=== PATIENT | female | born 1940 | race Caucasian/White ===

== ENCOUNTER 2016-10-28 04:02 | Inpatient (IN) ==
[2016-10-22 14:43] LABS: HEMATOCRIT 36.2 % (37.0-47.0); HEMOGLOBIN 12.3 g/dL (12.0-16.0); MANUAL DIFF NEEDED? NO; RBC 4.13 XMIL (4.2-5.4)
[2016-10-22 14:44] LABS: BASO% 1.5 % (0.0-0.8); EOS% 9.8 % (0.0-10.0); IMM GRAN% 0.2 % (0.0-0.5); LYMPH# 3.16 X1000 (1.2-3.4); LYMPH% 29.2 % (20.5-51.1); MCH 29.8 PG (27-31); MCV 87.7 FL (81-99); MONO% 6.7 % (1.7-9.3); MPV 9.7 FL (7.4-10.4); NEUT% 52.6 % (42.2-75.2); PLT 299 X1000 (130-400)
[2016-10-22 14:45] LABS: EOS# 1.06 X1000 (0.0-0.7); IMM GRAN# 0.02 X1000 (0.0-0.04); MONO# 0.72 X1000 (0.11-0.59)
[2016-10-22 15:03] LABS: INR 1.03; PROTIME 10.8 Seconds (9.2-11.7)
[2016-10-22 16:50] LABS: CALCIUM 9.8 mg/dL (8.8-10.2); SODIUM 139 mmol/L (136-145)
[2016-10-22 21:33] LABS: URINE MICRO REVIEW NEEDED? NO; URINE SOURCE VOIDED
[2016-10-22 21:35] LABS: URINE WBC 20-40 /HPF (<10)
[2016-10-22 21:36] LABS: BILIRUBIN URINE NEGATIVE (NEGATIVE); COLOR YELLOW; GLUCOSE URINE NEGATIVE (NEGATIVE); SP GRAVITY URINE 1.011; TURBIDITY URINE CLEAR (CLEAR); UR EPITHELIAL CELLS <10 /HPF (<10); URINE BACTERIA 4+ /HPF; URINE RBC <10 /HPF (<10)
[2016-10-22 21:37] LABS: BLOOD URINE NEGATIVE (NEGATIVE); LEUKOCYTES URINE MODERATE (NEGATIVE); NITRITE URINE NEGATIVE (NEGATIVE); PROTEIN URINE NEGATIVE (NEGATIVE); UROBILINOGEN URINE NORMAL (NORMAL)
[2016-10-22 21:51] LABS: AGAP 21; BUN 21 mg/dL (8-22); CHLORIDE 94 mmol/L (98-107); COSMO 283; POTASSIUM 4.8 mmol/L (3.5-5.1); TCO2 24 mmol/L (25-35)
[2016-10-28] MEDS ORDERED: COLACE ONE (08:48)
[2016-10-28] MEDS ORDERED: PEPCID ONE (08:49)
[2016-10-28] MEDS ORDERED: REGLAN ONE (08:49)
[2016-10-28] MEDS ORDERED: VANCOMYCIN 1 GM/NS 1 GM/250 ML IVPB ONE (08:49)
[2016-10-28] MEDS ORDERED: CELEBREX ONE (08:49)
[2016-10-28] MEDS ORDERED: LR 1,000 ML ONE (08:49)
[2016-10-28] MEDS ORDERED: LYRICA ONE (08:49)
[2016-10-28] MEDS ORDERED: TORADOL ONE (10:17)
[2016-10-28] MEDS ORDERED: DURAMORPH ONE (10:17)
[2016-10-28] MEDS ORDERED: SODIUM CHLORIDE 0.9% ONE (10:18)
[2016-10-28] MEDS ORDERED: CYKLOKAPRON 1,000 MG/NS 1,000 MG/100 ML IVPB ONE (10:18)
[2016-10-28] MEDS ORDERED: MARCAINE 0.25% PF/EPI 1:200,000 ONE (10:18)
[2016-10-28] MEDS ORDERED: NEOSPORIN G.U. IRRIGANT ONE (10:19)
[2016-10-28] MEDS ORDERED: CLAVE SECONDARY SET 11953 ONE (10:20)
[2016-10-28] MEDS ORDERED: EXPAREL 1.3% ONE (10:20)
--- NOTE | 2016-10-28 11:15 | HISTORY AND PHYSICAL ---
CHIEF COMPLAINT: Right hip pain. HISTORY OF PRESENT ILLNESS: This is a 76-year-old white female with history of gradually increasing pain in her right hip. She knows of no specific injury to her hip. She has been on considerable conservative treatment without relief. She was evaluated in the office and found to need a right total hip arthroplasty. The surgical procedure, as well as risks and benefits were explained to patient and at this time she agrees to proceed. PAST MEDICAL HISTORY: Serious illnesses: Diabetes, asthma, and heart disease. PAST SURGICAL HISTORY: Pacemaker, gallbladder, color resection, and Whipple. REGULAR MEDICATIONS: Accolate 20 one a day, aspirin 81 one a day, 2 twice a day, Coreg 12.5 twice a day, doxepin 50 one a day, Feosol 325 one a day, Lasix 40 one a day, metformin 100 twice a day, Norvasc 5 one a day, omega-3 soft gel 1 a day, Pravachol 40 one a day, levothyroxine 150 one a day, citalopram 100 once a day. REVIEW OF SYSTEMS: HEENT: No history of migraines, dizziness, loss of conscious, CVA. Heart: She has a history of pacemaker. No recent heart problems. Respiratory: She has a history of asthma in the past. She states she has not had any asthma problems in a long time. She is a nonsmoker. Abdomen: Has history of pancreatic cancer and colon cancer. She has had a Whipple in the past. PHYSICAL EXAMINATION: GENERAL APPEARANCE: This is a 76-year-old female, alert and oriented. Her primary care physician is Dr. Draper. HEENT: Pupils are equal, round, reactive. NECK: Good range of motion without adenopathy. RESPIRATORY: Respirations are equal, unlabored, clear bilaterally. HEART: Regular rate and rhythm. ABDOMEN: Soft, nontender. Bowel sounds present. EXTREMITIES: She states she is unable walk without a walker. She states the pain is severe in her right hip. It radiates down her leg. IMPRESSION: Degenerative disease, right hip. PLAN: Admit at this time for right total hip arthroplasty. Dictated by Jose Elias Alexis RN for Vicente Alejo MD This chart was documented by the indicated scribe, Jose Elias Alexis RN and accurately reflects the services I performed and decisions made by me, Vicente Alejo MD, as attested by the provider's signature. cc: Vicente Alejo MD
[2016-10-28 12:00] LABS: URINE MICRO REVIEW NEEDED? NO; URINE SOURCE CATH
[2016-10-28 12:22] LABS: BILIRUBIN URINE NEGATIVE (NEGATIVE); BLOOD URINE NEGATIVE (NEGATIVE); COLOR YELLOW; GLUCOSE URINE NEGATIVE (NEGATIVE); LEUKOCYTES URINE NEGATIVE (NEGATIVE); NITRITE URINE NEGATIVE (NEGATIVE); PH URINE 7.5; PROTEIN URINE NEGATIVE (NEGATIVE); SP GRAVITY URINE 1.007; TURBIDITY URINE CLEAR (CLEAR); UROBILINOGEN URINE NORMAL (NORMAL)
[2016-10-28 12:23] LABS: UR EPITHELIAL CELLS <10 /HPF (<10); URINE BACTERIA NEGATIVE /HPF; URINE RBC <10 /HPF (<10); URINE WBC <10 /HPF (<10)
[2016-10-28] MEDS ORDERED: NS 1,000 ML ONE (13:35)
[2016-10-28] MEDS ORDERED: FENTANYL ONE (14:00)
[2016-10-28] MEDS ORDERED: DIPRIVAN 1% ONE (14:00)
[2016-10-28] MEDS ORDERED: NEO-SYNEPHRINE ONE (14:14)
[2016-10-28] MEDS ORDERED: ZOFRAN ONE (14:14)
[2016-10-28] MEDS ORDERED: STERILE WATER INJ. ONE (14:14)
[2016-10-28] MEDS ORDERED: NS 250 ML ONE (14:15)
[2016-10-28] MEDS ORDERED: PIGGYBACK SET 7393 ONE (14:15)
[2016-10-28] MEDS ORDERED: EPHEDRINE ONE (14:15)
[2016-10-28] MEDS ORDERED: LR 2,000 ML ONE (14:15)
[2016-10-28] MEDS ORDERED: OFIRMEV 1000 MG/ISOTONIC SOLN 1,000 MG/100 ML BOTTLE ONE (14:15)
[2016-10-28 14:16] LABS: HEMATOCRIT 29.6 % (37.0-47.0); HEMOGLOBIN 9.9 g/dL (12.0-16.0)
[2016-10-28] MEDS ORDERED: ZOFRAN IV PRN (16:00)
[2016-10-28] MEDS ORDERED: OXY IR PO PRN (16:00)
[2016-10-28] MEDS ORDERED: AMBIEN PO PRN (16:00)
[2016-10-28] MEDS ORDERED: MORPHINE IV PRN (16:00)
[2016-10-28] MEDS ORDERED: MILK OF MAGNESIA PO PRN (16:00)
[2016-10-28] MEDS: TYLENOL PO SCH ×2 (16:45→21:02)
[2016-10-28] MEDS: ULTRAM PO SCH ×2 (16:46→21:01)
[2016-10-28] MEDS: FISH OIL CONCENTRATE PO SCH (16:49)
--- NOTE | 2016-10-28 16:52 | OPERATIVE NOTE ---
PROCEDURE DATE: 10/28/2016 PREOPERATIVE DIAGNOSIS: Right hip degenerative joint disease. POSTOPERATIVE DIAGNOSIS: Right hip degenerative joint disease. PROCEDURE PERFORMED: Right total hip arthroplasty using a [facility] size 7 femoral stem and a standard offset with a +4, 36 mm head and a 54 mm hemispherical shell with two 6.5 cancellous screws of 20 and 35 mm, and a 36 mm inside diameter acetabular liner. ANESTHESIA: Spinal. SURGEON: Vicente Alejo MD [employer]ING [employer]ATING [employer]OR: Kathy Harrington COMPLICATIONS: None. BLOOD LOSS: Minimal. DESCRIPTION OF PROCEDURE: The patient was brought to the operative suite and placed in supine position. After successful administration of a spinal anesthesia, the patient was placed on the OSI table in the usual position for right hip. The right hip was then prepped and draped in the usual sterile fashion. A longitudinal was made beginning 2 cm distal and 2 cm lateral to the anterior superior iliac spine, extended distally and slightly laterally 8 cm. It was dissected sharply through skin and subcutaneous tissue down to the tensor fascia. The tensor fascia was incised and dissected bluntly down to the deep tensor fascia. The deep tensor fascia was incised. The circumflex vessels were electrocauterized, and 1 larger vessel was tied with a 0 silk free tie. Then a T-capsulotomy was performed, exposing the femoral neck. A femoral neck cut was made with the oscillating saw. The femoral head was removed with the power corkscrew. The labrum was resected. Acetabulum was serially reamed to a 54 to accept a 54 cup. The cup was driven into place in the proper amount inclination and anteversion under fluoroscopy and then two 6.5 cancellous screws were placed a 35 mm superiorly and a 20 mm posterior superiorly. The acetabular liner was then locked onto the cup. Once this was seated, attention was directed to the femur. It was externally rotated, extended, adducted, and elevated out of the wound with the hook on the OSI bed. The lateral neck was rongeured. The canal was serially broached to a size 7. A size 7 standard offset +4, was trialed found to be excellent offset, stability and leg length. It was slightly longer than the left leg, however, the left leg did appear to be short due to the arthritis in the left hip as well. The trial was removed. The definitive stem was seated on the femur and then the ceramic +4 femoral head was locked onto the Larios taper. The hip was then reduced. It was again found to be in excellent position. The hip was copiously irrigated. The hip was copiously infiltrated with Exparel including the posterior capsule, anterior capsule, anterior musculature, and subcutaneous tissue. A drain was placed deep to the tensor fascia and then the tensor fascia was closed with 0 Vicryl suture. The skin edge approximated with 2-0 Vicryl. Skin was closed with Monocryl running subcuticular and then the skin was closed with Dermabond and a sterile dressing of Silverlon. The patient tolerated the procedure well without complication. At the end of the procedure, all counts correct x2. The patient was transferred to the recovery room in stable condition. cc: Vicente Alejo MD
[2016-10-28] MEDS: NS 1,000 ML IV SCH (16:53)
[2016-10-28] MEDS: GLUCOPHAGE PO SCH (16:53)
[2016-10-28] MEDS ORDERED: GLUCOPHAGE PO SCH (17:00)
[2016-10-28] MEDS ORDERED: CYKLOKAPRON 1,000 MG in NS 100 ML IV ONE (17:00)
[2016-10-28] MEDS ORDERED: KEFZOL 1 GM/D5W 1 GM/50 ML IVPB IV SCH (19:00)
[2016-10-28] MEDS ORDERED: VANCOMYCIN 1 GM/NS 1 GM/250 ML IVPB IV ONE (20:00)
[2016-10-28] MEDS: COLACE PO SCH (21:00)
[2016-10-28] MEDS: PERIDEX MT SCH (21:00)
[2016-10-28] MEDS: CELEBREX PO SCH (21:00)
[2016-10-28] MEDS: COREG PO SCH (21:01)
[2016-10-28] MEDS: ZYLOPRIM PO SCH (21:02)
[2016-10-28] MEDS: LYRICA PO SCH (21:02)
[2016-10-29] MEDS: ULTRAM PO SCH ×4 (04:32→23:44)
[2016-10-29] MEDS: NS 1,000 ML IV SCH (04:33)
[2016-10-29] MEDS: TYLENOL PO SCH ×4 (04:33→21:42)
[2016-10-29] MEDS: XARELTO PO SCH ×2 (04:33→07:48)
[2016-10-29 06:17] LABS: HEMATOCRIT 26.6 % (37.0-47.0); HEMOGLOBIN 8.9 g/dL (12.0-16.0)
[2016-10-29 06:30] LABS: AGAP 13; BUN 15 mg/dL (8-22); CALCIUM 7.9 mg/dL (8.8-10.2); CHLORIDE 97 mmol/L (98-107); COSMO 272; POTASSIUM 4.3 mmol/L (3.5-5.1); SODIUM 134 mmol/L (136-145); TCO2 24 mmol/L (25-35)
[2016-10-29] MEDS: METAMUCIL PO SCH ×6 (07:48→21:42)
[2016-10-29] MEDS: LYRICA PO SCH ×3 (08:19→21:43)
[2016-10-29] MEDS: PEPCID PO SCH (08:21)
[2016-10-29] MEDS: CELEBREX PO SCH ×2 (08:21→21:41)
[2016-10-29] MEDS: COLACE PO SCH ×2 (08:21→21:41)
[2016-10-29] MEDS: ZYLOPRIM PO SCH ×2 (08:21→21:41)
[2016-10-29] MEDS: PERIDEX MT SCH ×2 (08:22→21:41)
[2016-10-29] MEDS: FERROUS SULFATE PO SCH (08:22)
[2016-10-29] MEDS: LASIX PO SCH (08:22)
[2016-10-29] MEDS: GLUCOPHAGE PO SCH ×2 (08:22→17:02)
[2016-10-29] MEDS: NORVASC PO SCH (08:22)
[2016-10-29] MEDS: FISH OIL CONCENTRATE PO SCH ×3 (08:22→17:02)
[2016-10-29] MEDS: ACCOLATE PO SCH (08:22)
[2016-10-29] MEDS: PRAVACHOL PO SCH (08:22)
[2016-10-29] MEDS: SYNTHROID PO SCH (08:22)
[2016-10-29] MEDS: SINEQUAN PO SCH (08:23)
--- NOTE | 2016-10-29 08:36 | PROGRESS NOTE ---
DATE: 10/29/2016 SUBJECTIVE: Ms. Putnam is a 76-year-old female who is postoperative day 1 from the right total hip arthroplasty. She has no new complaints. Her vital signs are stable. OBJECTIVE: General: She is a well developed, well-nourished female. She is alert and oriented and cooperative with the examination. Her vital signs were stable and she is afebrile. Extremities: Her dressing is clean, dry, and intact without sign of infection. Her leg is neurovascularly intact. Intact sensation to light touch. LABORATORY: Her hematocrit is 26.6% and her hemoglobin is 8.9. She has had 80 mL of drainage from her Hemovac. ASSESSMENT: Stable right total hip arthroplasty. PLAN: We plan to start working with her with physical therapy today and she wishes to go to rehab in [place] which is closer to her brother and we will try to make arrangements for that in later in the week. Dictated by PEDRO Neely for Vicente Alejo MD cc: PEDRO Neely MD
[2016-10-29] MEDS ORDERED: DECADRON IV ONE (09:00)
[2016-10-29] MEDS: COREG PO SCH ×2 (11:22→21:52)
[2016-10-30 05:49] LABS: HEMATOCRIT 26.7 % (37.0-47.0)
[2016-10-30] MEDS: XARELTO PO SCH (06:44)
[2016-10-30] MEDS: ULTRAM PO SCH ×3 (06:44→18:18)
[2016-10-30] MEDS: TYLENOL PO SCH ×5 (06:44→22:53)
[2016-10-30] MEDS: METAMUCIL PO SCH ×4 (08:31→22:53)
[2016-10-30] MEDS: FERROUS SULFATE PO SCH (08:32)
[2016-10-30] MEDS: FISH OIL CONCENTRATE PO SCH ×3 (08:32→18:17)
[2016-10-30] MEDS: ACCOLATE PO SCH (08:32)
[2016-10-30] MEDS: LASIX PO SCH (08:32)
[2016-10-30] MEDS: GLUCOPHAGE PO SCH ×2 (08:32→18:17)
[2016-10-30] MEDS: CELEBREX PO SCH ×2 (08:33→22:53)
[2016-10-30] MEDS: PEPCID PO SCH (08:33)
[2016-10-30] MEDS: COREG PO SCH ×2 (08:33→22:53)
[2016-10-30] MEDS: SYNTHROID PO SCH (08:33)
[2016-10-30] MEDS: SINEQUAN PO SCH (08:33)
[2016-10-30] MEDS: COLACE PO SCH ×2 (08:33→22:53)
[2016-10-30] MEDS: NORVASC PO SCH (08:34)
[2016-10-30] MEDS: PERIDEX MT SCH ×2 (08:34→22:52)
[2016-10-30] MEDS: ZYLOPRIM PO SCH ×2 (08:34→22:53)
[2016-10-30] MEDS: LYRICA PO SCH ×2 (08:35→22:54)
[2016-10-30] MEDS: PRAVACHOL PO SCH (08:36)
--- NOTE | 2016-10-30 12:15 | PROGRESS NOTE ---
DATE: 10/30/2016 SUBJECTIVE: Natalie Putnam is a 76-year-old female who is postoperative day 2 from a right total hip arthroplasty through a direct anterior approach. She has no complaints. She states she is walking well with physical therapy. OBJECTIVE: General: She is a well-developed, well-nourished female. She is alert, oriented, and cooperative with examination. Vital Signs: Her vital signs are stable. She is afebrile. Extremities: Her leg is neurovascularly intact, without sign of infection, deep venous thrombosis. Her wound is clean, dry, and intact as well. LABORATORIES: Her hematocrit is stable at 26.7%. Her hemoglobin is 9. ASSESSMENT: Stable postoperative day 2 visit from a right anterior total hip arthroplasty. PLAN: She will be transferred to rehabilitation in [place], likely tomorrow. cc: Vicente Alejo MD
--- NOTE | 2016-10-30 14:46 | Diag Imaging Result Document ---
PROCEDURE NAME: CHEST-PORTABLE - 10/30/2016 PORTABLE CHEST: COMPARISON: Compared to 10/11/2016. FINDINGS: The lungs are well expanded. The heart is borderline mildly prominent. The vessels are not distended. No pneumonia. No pleural effusions identified. The patient has a left-sided pacemaker. No consolidation. IMPRESSION: Borderline mildly prominent heart, otherwise negative exam.
[2016-10-31] MEDS: ULTRAM PO SCH ×3 (01:43→11:48)
[2016-10-31] MEDS: XARELTO PO SCH (05:21)
[2016-10-31] MEDS: TYLENOL PO SCH ×2 (05:21→10:35)
[2016-10-31 05:42] LABS: HEMATOCRIT 27.7 % (37.0-47.0); HEMOGLOBIN 9.3 g/dL (12.0-16.0)
[2016-10-31] MEDS: SINEQUAN PO SCH (08:26)
[2016-10-31] MEDS: FERROUS SULFATE PO SCH (08:26)
[2016-10-31] MEDS: FISH OIL CONCENTRATE PO SCH ×2 (08:26→12:46)
[2016-10-31] MEDS: ZYLOPRIM PO SCH (08:27)
[2016-10-31] MEDS: METAMUCIL PO SCH ×2 (08:27)
[2016-10-31] MEDS: COLACE PO SCH (08:27)
[2016-10-31] MEDS: COREG PO SCH (08:27)
[2016-10-31] MEDS: ACCOLATE PO SCH (08:27)
[2016-10-31] MEDS: PEPCID PO SCH (08:27)
[2016-10-31] MEDS: CELEBREX PO SCH (08:27)
[2016-10-31] MEDS: PRAVACHOL PO SCH (08:27)
[2016-10-31] MEDS: NORVASC PO SCH (08:27)
[2016-10-31] MEDS: SYNTHROID PO SCH (08:27)
[2016-10-31] MEDS: GLUCOPHAGE PO SCH (08:27)
[2016-10-31] MEDS: LYRICA PO SCH (08:28)
[2016-10-31] MEDS: LASIX PO SCH (08:28)
[2016-10-31] MEDS: PERIDEX MT SCH (08:28)
--- NOTE | 2016-10-31 10:52 | DISCHARGE SUMMARY ---
ADMISSION DATE: 10/28/2016 DISCHARGE DATE: 10/31/2016 DISCHARGE DIAGNOSIS: Right hip degenerative joint disease, status post right total hip arthroplasty. DISCHARGE MEDICATIONS: See discharge medication list. DISPOSITION: Patient discharged to rehab in [place] with an anterior total hip arthroplasty protocol with no hip precautions. Instructed to return for any signs or symptoms of infection or deep venous thrombosis. Instructed to return to see Dr. Alejo when discharged from rehab. HOSPITAL COURSE: On the day of admission, the patient underwent right anterior total hip arthroplasty. Her postoperative course was unremarkable. At discharge, she is afebrile, tolerating a regular diet, ambulating well with physical therapy. Her wound is clean, dry, and intact without sign of infection. She is discharged to rehab in a stable condition and was instructed to follow up as described above. cc: Vicente Alejo MD
[2016-10-31 11:24] VITALS: BP 124/48
== END 2016-10-31 13:33 ==
LOC: SURHOLD 04:02 → 4N 10:57
PROVIDERS: ADMIT Orthopaedic Surgery; ATTEND Orthopaedic Surgery